=== PATIENT | female | born 1970 | race Caucasian/White ===

== ENCOUNTER 2017-01-31 13:00 | Emergency (ER) | payer MEDICARE, MEDICAID ==
[~2017-01-31] VITALS: Ht 172.7 cm; Wt 104.3 kg
[2017-01-31] MEDS ORDERED: GLUCOPHAGE850 MG PO (14:43)
[2017-01-31] MEDS ORDERED: ONGLYZA5 MG PO (14:44)
[2017-01-31] MEDS ORDERED: MICRONASE5 MG PO (14:44)
[2017-01-31] MEDS ORDERED: CHLORTHALIDONE25 MG PO (14:44)
[2017-01-31] MEDS ORDERED: SINGULAIR10 MG PO (14:45)
== END 2017-01-31 16:15 | disposition short-term general hospital (02) ==
LOC: ER 13:00
PROC: 2Y41X5Z Packing of Nasal Region using Packing Material (ICD-10-PCS; principal; 2017-01-31)
DX: R04.0 Epistaxis (principal); E11.9 Type 2 diabetes mellitus without complications; E78.5 Hyperlipidemia, unspecified; I10 Essential (primary) hypertension; M19.90 Unspecified osteoarthritis, unspecified site; Z98.890 Other specified postprocedural states; Z90.49 Acquired absence of other specified parts of digestive tract; Z79.84 Long term (current) use of oral hypoglycemic drugs; Z79.899 Other long term (current) drug therapy

== ENCOUNTER → 2017-02-01 | Outpatient (CLI) | payer MEDICARE, MEDICAID ==
[~2017-02-01] MED LIST: CHLORTHALIDONE25 MG PO; GLUCOPHAGE850 MG PO; MICRONASE5 MG PO; ONGLYZA5 MG PO; SINGULAIR10 MG PO
== END | disposition short-term general hospital (02) ==
LOC: CLENT 12:32
DX: R04.0 Epistaxis (principal); J34.0 Abscess, furuncle and carbuncle of nose